=== PATIENT | female | born 2000 | race African-American/Black ===

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

== ENCOUNTER 2018-04-21 16:52 | Emergency (ER) | payer MEDICAID ==
[~2018-04-21] VITALS: Ht 170.2 cm; Wt 83.9 kg
[2018-04-21 16:58] VITALS: BP 124/70
--- NOTE | 2018-04-21 16:58 | NUR ---
TO BED # 4 AMBULATORY, REPORT GIVEN TO WILL PAYNE
--- NOTE | 2018-04-21 17:08 | NUR ---
pt refusing to change into gown at this time
--- NOTE | 2018-04-21 17:08 | NUR ---
PT C/O SORETHROAT, H/A NAUSEA, COUGH, FOR 9 DAYS, NO CRAMPING, VAG BLEEDING NOTED , PREGNA NT 31 WEEKS, LMP SEPTEMBER 11.
--- NOTE | 2018-04-21 17:43 | NUR ---
SWABS COLLECTED AND SENT TO LAB
--- NOTE | 2018-04-21 18:00 | NUR ---
pt on stretcher, respis even and unlabored, no requests at this time. pt given blanket.
[2018-04-21 18:51] VITALS: BP 125/78
--- NOTE | 2018-04-21 18:52 | NUR ---
Patient discharged with v/s stable. Written and verbal after care instructions given and explained. Patient alert, oriented and verbalized understanding of instructions. Ambulatory with steady gait. All questions addressed prior to discharge. ID band removed. Patient advised to follow up with PMD. Rx of promethazine and azithromycin given. Patient educated on indication of medication including possible reaction and side effects. Opportunity to ask questions provided and answered.
== END 2018-04-21 18:52 | disposition home or self-care (01) ==
LOC: MED 16:52
DX: O99.513 Diseases of the respiratory system complicating pregnancy, third trimester (principal); Z3A.31 31 weeks gestation of pregnancy
CPT/HCPCS: 36415; 87081; 87804; 99283

== ENCOUNTER 2018-05-10 10:45 | Observation (INO) | payer MEDICAID ==
[~2018-05-10] VITALS: Ht 170.2 cm; Wt 88.5 kg
[2018-05-10 11:01] VITALS: BP 115/70
[2018-05-10] MEDS ORDERED: TERBUTALINE 1 MG/ML VIAL SUBQ STA (12:06)
[2018-05-10] MEDS ORDERED: TERBUTALINE 1 MG/ML VIAL SUBQ ONE (12:11)
[2018-05-10 13:58] LABS: APPEARANCE,URINE CLEAR (CLEAR); BILIRUBIN,URINE NEGATIVE (NEGATIVE); BLOOD, URINE NEGATIVE (NEGATIVE); COLOR,URINE YELLOW (YELLOW); LEUKOCYTE ESTERASE ,URINE TRACE (NEGATIVE); NITRITE, URINE NEGATIVE (NEGATIVE); UGLUCOSE NEGATIVE (NEGATIVE)
[2018-05-10 13:59] LABS: RBC,URINE 0-5 (RARE) /HPF (0-5)
[2018-05-10 14:00] LABS: WBC,URINE 0-5 (RARE) /HPF (0-5)
[2018-05-10] MEDS ORDERED: PREN-380 PO (14:54)
[2018-05-10] MEDS ORDERED: FERR-252 PO (14:55)
== END 2018-05-10 16:35 | disposition home or self-care (01) ==
LOC: MLD 10:45
PROVIDERS: ADMIT Obstetrics & Gynecology; ATTEND Obstetrics & Gynecology
DX: O26.893 Other specified pregnancy related conditions, third trimester (principal); R10.9 Unspecified abdominal pain; Z3A.34 34 weeks gestation of pregnancy
CPT/HCPCS: 81001; 96372; C1758; G0378; J3105

== ENCOUNTER 2018-06-19 17:45 | Emergency (ER) | payer BC, MEDICAID ==
[~2018-06-19 17:45] MED LIST: FERR-252 PO; PREN-380 PO
== END 2018-06-19 20:20 | disposition home or self-care (01) ==
LOC: MED 17:45
DX: J06.9 Acute upper respiratory infection, unspecified (principal); Z79.899 Other long term (current) drug therapy
CPT/HCPCS: 99281

== ENCOUNTER 2021-08-06 09:00 | Emergency (ER) | payer BC, MEDICAID, OTHER ==
[~2021-08-06] VITALS: Ht 170.2 cm; Wt 89.4 kg
[2021-08-06 09:06] VITALS: BP 118/61
--- NOTE | 2021-08-06 09:15 | NUR ---
21 Y/O F AMBULATED TO BED 2, C/O NVD X YESTERDAY, RUNNY NOSE AND CONGESTION NKDA PMH: DENIES
--- NOTE | 2021-08-06 09:20 | NUR ---
DR CLARK AT BEDSIDE FOR MSE
[2021-08-06] MEDS ORDERED: ONDA-188 PO (09:32)
--- NOTE | 2021-08-06 09:47 | NUR ---
NOVEL SWAB TAKEN TO LAB
[2021-08-06 09:55] VITALS: BP 118/61
== END 2021-08-06 09:55 | disposition home or self-care (01) ==
LOC: MED 09:00
DX: B34.9 Viral infection, unspecified (principal); Z20.822 Contact with and (suspected) exposure to COVID-19; R11.0 Nausea; Z79.899 Other long term (current) drug therapy
CPT/HCPCS: 36415; 99283; U0003